=== PATIENT | female | born 1955 | race Caucasian/White ===

== ENCOUNTER 2019-05-22 12:26 | Emergency (ER) | payer MEDICARE, OTHER ==
[~2019-05-22] VITALS: Ht 170.2 cm; Wt 89.8 kg
--- OUTSIDE RECORDS SUMMARY | 2019-05-22 12:30 | XMS ---
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 ESocorro VISIT COUNT (12 MO.) [address] [place] [address] MY[place] TOTAL 5 NOTE: Visits indicate total known visits. ED/UCC VISIT TRACKING (12 MO.) 05/22/2019 12:27 [facility] [place] TYPE: Emergency COMPLAINT: - FOOT NUMBNESS 04/18/2019 22:22 [facility] DIAGNOSES: - Pain in right hand - R WRIST PAIN 09/11/2018 17:16 [facility] [place] TYPE: Emergency DIAGNOSES: - Unstable angina - CHEST PAIN 09/09/2018 00:49 [facility] [place] TYPE: Emergency DIAGNOSES: - Illness, unspecified - Chest pain, unspecified 09/08/2018 20:50 [facility] [place] TYPE: Emergency DIAGNOSES: - R ARM PAIN AND JAW PAIN - Other forms of angina pectoris INPATIENT VISIT TRACKING (12 MO.) 09[facility]11[facility]2018 [facility] [place] TYPE: General [facility] DIAGNOSES: - Unspecified chronic bronchitis - Chest pain, unspecified - Chest Pain 09/09/2018 00:49 [facility] [place] TYPE: General Medicine DIAGNOSES: - Chest pain, unspecified - Illness, unspecified [email or web address]
[2019-05-22] MEDS ORDERED: AMLODIPINE BESY10 MG PO (13:07)
[2019-05-22] MEDS ORDERED: CITALOPRAM HBR20 MG PO (13:07)
[2019-05-22] MEDS ORDERED: OMEPRAZOLE20 MG PO (13:08)
[2019-05-22] MEDS ORDERED: HYDROCODON-ACE1 EA10 PO (13:08)
[2019-05-22] MEDS ORDERED: HYDROXYCHLOROQ200 MG PO (13:08)
[2019-05-22] MEDS ORDERED: SYNTHROID112 MCG PO (13:08)
[2019-05-22] MEDS ORDERED: ATORVASTATIN CA40 MG PO (13:08)
[2019-05-22] MEDS ORDERED: TRAZODONE HCL150 MG PO (13:08)
== END 2019-05-22 14:19 | disposition home or self-care (01) ==
LOC: ED 12:26
DX: I73.9 Peripheral vascular disease, unspecified (principal); Z88.0 Allergy status to penicillin; Z88.8 Allergy status to other drugs, medicaments and biological substances; Z88.5 Allergy status to narcotic agent; Z79.899 Other long term (current) drug therapy
CPT/HCPCS: 93926; 93971; 99283-25